=== PATIENT | female | born 1960 | race Caucasian/White ===

== ENCOUNTER 2018-03-12 05:19 | Emergency (ER) | payer OTHER ==
[2018-03-12 05:38] VITALS: BP 111/68; PULSE 73; TEMP 97.8; BMI 22.3
[2018-03-12] MEDS ORDERED: predniSONE 20 MG TABLET (UD) PO ONE (05:45)
[2018-03-12] MEDS ORDERED: METHOCARBAMOL 750 MG TAB PO STA (05:46)
[2018-03-12] MEDS ORDERED: KETOROLAC TROMETHAMINE 60 MG/2 ML VIAL ONE (05:46)
[2018-03-12] MEDS ORDERED: KETOROLAC TROMETHAMINE 60 MG/2 ML VIAL IM ONE (05:46)
[2018-03-12] MEDS ORDERED: METHOCARBAMOL 500 MG TABLET ONE (05:49)
[2018-03-12] MEDS ORDERED: predniSONE 20 MG TABLET (UD) ONE (05:50)
--- NOTE | 2018-03-12 05:50 | PDOC ---
History of Present Illness - General Chief Complaint: Back Pain Stated Complaint: BACK PAIN Time Seen by Provider: 03/12/18 05:42 History Source: Patient Exam Limitations: No Limitations - History of Present Illness Initial Comments: 03/12/18 05:50 This is a 57-year-old female who has history of back pain in the past. Patient now comes in complaining of exacerbation of her chronic back pain with radiation to the right leg. Patient denies any recent trauma or any unusual injury to the area. Patient has been taking the usual medication without relief. Patient otherwise takes Synthroid but is otherwise healthy. Patient denies any fevers or chills. Patient denies any increased pain with movement of the leg. Patient denies any numbness or tingling leg. Allergies: None Past Medical History: none Social history: Lives with family. No smoking. No alcohol. No illicit drugs. Surgical history: None General: No fevers or chills, no weakness, no weight loss HEENT: No change in vision. No sore throat,. No ear pain CardioVascular: no chest discomfort. No shortness of breath Respiratory:No cough, or wheezing. Gastrointestinal: no nausea, vomiting, diarrhea or constipation, No rectal bleeding Genitourinary: No dysuria, hematuria, or frequency Musculoskeletal: No joint or muscle pain or swelling,+ low back pain radiating to right leg cervical Neurologic: No headache, vertigo, dizziness or loss of consciousness Psychiatric: nor depression Skin: No rashes or easy bruising Endocrine: no increased thirst or abnormal weight change Allergic: no skin or latex allergy All other systems reviewed and normal GENERAL: The patient is awake, alert, and fully oriented, in no acute distress. HEAD: Normal with no signs of trauma. EYES: Pupils equal, round and reactive to light, extraocular movements intact, sclera anicteric, conjunctiva clear. EXTREMITIES:atraumatic, Normal range of motion, no edema. BACK: There is minimal discomfort on palpation of the low back lumbosacral spine. There is no pain on palpation of the right hip or right leg. There is no increase in pain with range of motion of that hip. Neurovascular distal is intact. NEUROLOGICAL: Normal speech, normal gait. PSYCH: Normal mood, normal affect. SKIN: Warm, Dry, normal turgor, no rashes or lesions noted. Assessment and plan: This is a 57-year-old female with low back pain radiating to the right leg. Patient given Toradol, Robaxin, prednisone and prescriptions were sent to her pharmacy for naproxen and Medrol Dosepak. Patient discharged home with orthopedic follow-up. Past History - Past Medical History Allergies/Adverse Reactions: Allergies Allergy/AdvReac Type Severity Reaction Status Date / Time oxycodone AdvReac Verified 03/12/18 05:21 Home Medications: Ambulatory Orders Bupropion HCl [Bupropion HCl ER] 200 mg PO BID 03/12/18 Levothyroxine [Synthroid -] 100 mcg PO DAILY 03/12/18 Methocarbamol [Robaxin -] 750 mg PO QID #28 tablet 03/12/18 Methylprednisolone [Medrol Dose Derrek] 4 mg PO ASDIR #21 tablet 03/12/18 Naproxen [Naprosyn] 500 mg PO BID #28 tablet 03/12/18 COPD: No Psychiatric Problems: Yes Thyroid Disease: Yes Other medical history: BACK PAIN - Suicide/Smoking/Psychosocial Hx Smoking History: Never smoked *Physical Exam - Vital Signs Last Vital Signs Temp Pulse Resp BP Pulse Ox 97.8 F 73 16 111/68 99 03/12/18 05:31 03/12/18 05:31 03/12/18 05:31 03/12/18 05:31 03/12/18 05:31 *DC/Admit/Observation/Transfer Diagnosis at time of Disposition: Lumbar back pain with radiculopathy affecting right lower extremity - Discharge Dispostion Disposition: HOME Condition at time of disposition: Stable Decision to Admit order: No - Referrals Referrals: ON STAFF,NOT [Primary Care Provider] - - Patient Instructions Additional Instructions: The pain take naproxen 1 tablet as often as twice a day. In addition to the naproxen take Robaxin 1 tablet as of this 4 times a day. Robaxin may make you drowsy so if you have to limited to the nighttime hours that is okay. In addition to that take the Medrol Dosepak as directed. Follow-up with an orthopedist if he needed an orthopedist call [phone] Tuesday morning for an appointment. Return to the emergency department immediately with ANY new, persistent or worsening symptoms. Continue any medications as previously prescribed by your physician. You should follow up with your primary doctor as soon as possible regarding today's emergency department visit. . Please make sure your doctor reviews the results of your emergency evaluation. Thank you for coming to the Emergency Department today for your care. It was a pleasure to see you today. Please note that your evaluation is INCOMPLETE until you follow-up with your doctor. - Post Discharge Activity
== END 2018-03-12 06:08 | disposition home or self-care (01) ==
LOC: FER 05:19
PROC: 3E0233Z Introduction of Anti-inflammatory into Muscle, Percutaneous Approach (ICD-10-PCS; principal; 2018-03-12)
DX: M54.16 Radiculopathy, lumbar region (principal); F99 Mental disorder, not otherwise specified; E07.9 Disorder of thyroid, unspecified; G89.29 Other chronic pain
CPT/HCPCS: 99282-25